=== PATIENT | female | born 1985 | race Caucasian/White ===

== ENCOUNTER 2024-12-23 18:46 | Emergency (ER) | payer OTHER ==
[2024-12-23 19:12] VITALS: TEMP 97.6
--- NOTE | 2024-12-23 19:24 | ERPHSYRPT ---
- History of Present Illness Time Seen by Provider: 12/23/24 19:10 Source: patient Patient Subjective Stated Complaint: pt here for pressure to head,throat,neck and chest off and on for weeks now, [facility] and has followed up with family doc. she was not started on any meds. she is to get a heart monitor in 2 days Triage Nursing Assessment: pt alert, and oriented walked in gait steasy resp easy, skin w/d/p. no drooling, no cough, moves all ext well, Physician History: 39-year-old female presents with ongoing symptoms of discomfort in she reports that she has been worked up by outside ER her digital printer and her primary care doc and they do not know the cause of the symptoms. She reports the symptoms typically occur upon eating and swallowing. She states if she drinks fluids or eat grapes she might immediately have the symptoms. She denies any exertional symptoms. She reports a vague pressure in her throat anterior neck and chest. She states sometimes her entire head will feel tingly. She does not have a headache. She does not describe any stroke symptoms of speech changes focal numbness weakness balance issues or visual changes. She reports that her doctor is setting her up for an outpatient cardiac workup. She states that she has already had workup by providers without a cause. She presents today wanting evaluation for ongoing symptoms. She denies abdominal pain. No fever or chills. No cough Allergies/Adverse Reactions: katha gal allergy Allergy (Uncoded 12/23/24 19:00) Home Medications: No Reportable Medications [No Reported Medications] 01/13/21 [History] Hx Tetanus, Diphtheria Vaccination/Date Given: No Hx Influenza Vaccination/Date Given: No Hx Pneumococcal Vaccination/Date Given: No Immunizations Up to Date: Yes Travel Risk - International Travel Have you traveled outside of the country in past 3 weeks: No - Emerging Infectious Disease Are you exhibiting symptoms associated with any current EIDs: No - Review of Systems Constitutional: No Fever, No Chills Eyes: No Symptoms Ears, Nose, & Throat: No Symptoms Respiratory: No Cough, No Dyspnea Cardiac: Chest Pain, No Edema, No Syncope Abdominal/Gastrointestinal: No Abdominal Pain, No Nausea, No Vomiting, No Diarrhea Genitourinary Symptoms: No Dysuria Musculoskeletal: No Back Pain, No Neck Pain Skin: No Rash Neurological: No Dizziness, No Focal Weakness, No Gait Changes, No Headache, No Lethargy, No Parasthesia, No Seizure, No Sensory Changes Psychological: No Symptoms Endocrine: No Symptoms All Other Systems: Reviewed and Negative - Past Medical History Pertinent Past Medical History: No Neurological History: Other Cardiac History: No Pertinent History Respiratory History: No Pertinent History Endocrine Medical History: No Pertinent History Musculoskeletal History: Other Female Reproductive Disorders: Other Other Medical History: LYME DZ; THYROID NODULES, ENLARGED. PT. REPORTS SHE HAD ELEVATED "RA" MARKER; CELIAC DZ, ALPHA GOUT ALLERGY - Past Surgical History Past Surgical History: Yes Other Surgical History: thyroid bx Significant Family History: no pertinent family hx - Female History Hx Last Menstrual Period: now Hx Now: No - Social History Smoking Status: Never smoker Exposure to second hand smoke: No Drug Use: none - Social Determinants of Health Will the patient participate in the screening: Yes Do you worry about a steady place to live?: Yes Do you have any problems with any of the following?: No known problems In the past 12 months,have you had to go without utilities?: No Transportation Issues: No Has anyone in your support network made you feel unsafe?: No Have you or anyone in your house had to go w/o enough food: No - Nursing Vital Signs Nursing Vital Signs: Initial Vital Signs Respiratory Rate 16 12/23/24 19:00 Blood Pressure 164/99 12/23/24 19:00 O2 Sat by Pulse Oximetry 97 12/23/24 19:00 Pain Scale Pain Intensity 3 - Physical Exam General Appearance: no apparent distress, alert Eye Exam: PERRL/EOMI, eyes nml inspection Ears, Nose, Throat Exam: normal ENT inspection, TMs normal, pharynx normal, moist mucous membranes Neck Exam: normal inspection, non-tender, supple, full range of motion Respiratory Exam: normal breath sounds, lungs clear, No respiratory distress Cardiovascular Exam: regular rate/rhythm, normal heart sounds, normal peripheral pulses Gastrointestinal/Abdomen Exam: soft, normal bowel sounds, No tenderness, No mass Back Exam: normal inspection, normal range of motion, No CVA tenderness, No vertebral tenderness Extremity Exam: normal inspection, normal range of motion, pelvis stable Neurologic Exam: alert, oriented x 3, cooperative, normal mood/affect, nml cerebellar function, nml station & gait, sensation nml, No motor deficits Skin Exam: normal color, warm, dry, No rash Lymphatic Exam: No adenopathy SpO2 Interpretation: normal SpO2: 97 Ordered Tests: Active Orders 24 hr Category Date Time Status EKG-ER Only STAT Care 12/23/24 19:23 Active CHEST 1 VIEW (PORTABLE) Stat Exams 12/23/24 19:22 Completed CBC W DIFF Stat Lab 12/23/24 19:50 Completed CMP Stat Lab 12/23/24 19:50 Completed TROPONIN Q4H Lab 12/23/24 19:50 Completed TROPONIN Q4H Lab 12/23/24 23:30 Ordered TROPONIN Q4H Lab 12/24/24 03:30 Ordered Lab/Rad Data: Laboratory Result Diagrams 12/23/24 19:50 12/23/24 19:50 Laboratory Results 12/23/24 12/23/24 12/23/24 Range/Units 19:50 19:50 19:50 WBC 5.3 (3.98-10.04) x10^3/uL RBC 4.87 (3.93-5.22) x10^6/uL Hgb 12.9 (11.2-15.7) g/dL Hct 40.0 (34.1-44.9) % MCV 82.1 (79.4-94.8) fL MCH 26.5 (25.6-32.2) pg MCHC 32.3 (32.2-35.5) g/dL RDW 13.7 (11.7-14.4) % Plt Count 192 (182-369) x10^3/uL MPV 11.5 (9.4-12.3) fL Gran % 61.8 (34.0-71.1) % Immature Gran % (Auto) 0.2 (0.001-0.429) % Nucleat RBC Rel Count 0.0 (0.00-0.2) % Eos # (Auto) 0.07 (0.04-0.36) x10^3/uL Immature Gran # (Auto) 0.01 (0.001-0.031) x10^3u/L Absolute Lymphs (auto) 1.53 (1.18-3.74) x10^3/uL Absolute Monos (auto) 0.37 (0.24-0.86) x10^3/uL Absolute Nucleated RBC 0.00 (0.00-0.012) x10^3u/L Lymphocytes % 28.9 (19.3-51.7) % Monocytes % 7.0 (4.7-12.5) % Eosinophils % 1.3 (0.7-5.8) % Basophils % 0.8 (0.1-1.2) % Absolute Granulocytes 3.28 (1.56-6.13) x10^3/uL Basophils # 0.04 (0.01-0.08) x10^3/uL Sodium 136 (135-145) mmol/L Potassium 3.5 (3.5-5.1) mmol/L Chloride 101 (98-107) mmol/L Carbon Dioxide 27 (22-30) mmol/L Anion Gap 11.1 (5-15) MEQ/L BUN 8 (7-17) mg/dL Creatinine 0.83 (0.52-1.04) mg/dL Estimated GFR 91.3 ML/MIN Glucose 88 (74-106) mg/dL Calcium 9.1 (8.4-10.2) mg/dL Total Bilirubin 0.50 (0.2-1.3) mg/dL AST 30 (14-36) U/L ALT 35 (0-35) U/L Alkaline Phosphatase 63 (38-126) U/L Troponin I < 0.012 (0.000-0.033) ng/mL Serum Total Protein 7.2 (6.3-8.2) g/dL Albumin 4.3 (3.5-5.0) g/dL - Progress Progress: unchanged, improved Progress Note: 12/23/24 19:27 Sense with several moments and ongoing symptoms she reports worse with swallowing. She states that she will get an uneasiness or burning sensation sometimes a pressure in her neck and chest that occurs mostly with swallowing. She reports symptoms immediately after drinking fluids or eating grapes she will have a soreness in her throat and into her chest. Denies any other active symptoms. Denies chest pain. No difficulty swallowing. She has had prior workups including seeing a digital printer outside ER workup and saw her PCP without a cause. Get cardiac evaluation EKG chest x-ray and baseline labs. 12/23/24 20:04 cxr no acute abn seen 12/23/24 20:51 Workup was unremarkable. Patient's had symptoms for several months. I do not see any etiology. The symptoms seem to be worse is associated with swallowing possible esophagitis so we will place on a PPI. I discussed the importance of her follow-up with her primary care. Return instructions - Departure Departure Disposition: Home Clinical Impression: Chest pressure Condition: Good Critical Care Time: No Referrals: RADHA REYNOLDS MD [Primary Care Provider, [facility]] - Follow up/PCP as directed Additional Instructions: Started on medication for possible esophageal inflammation. Please keep follow- up with your provider. Your workup in the ER is negative and you may need further outpatient workup and return for worsening symptoms or concerns Prescriptions: PANTOPRAZOLE 40 mg Tablet [Protonix 40MG Tablet] 40 mg PO DAILY 30 Days #30 tab
[2024-12-23 19:53] LABS: BASOPHIL % 0.8 % (0.1-1.2); Basophil (Absolute #) 0.04 x10^3/uL (0.01-0.08); Eosinophil (Absolute #) 0.07 x10^3/uL (0.04-0.36); Hematocrit 40.0 % (34.1-44.9); Hemoglobin 12.9 g/dL (11.2-15.7); IMMATURE GRAN # 0.01 x10^3u/L (0.001-0.031); IMMATURE GRAN % 0.2 % (0.001-0.429); Lymphocyte (Absolute #) 1.53 x10^3/uL (1.18-3.74); Mean Corpuscular Hemoglobin 26.5 pg (25.6-32.2); Mean Corpuscular Hgb Concent. 32.3 g/dL (32.2-35.5); Monocyte (Absolute #) 0.37 x10^3/uL (0.24-0.86); NUCLEATED RBC # 0.00 x10^3u/L (0.00-0.012); NUCLEATED RBC % 0.0 % (0.00-0.2); Platelet Count 192 x10^3/uL (182-369); Red Blood Count 4.87 x10^6/uL (3.93-5.22); White Blood Count 5.3 x10^3/uL (3.98-10.04)
[2024-12-23 20:12] LABS: Calcium 9.1 mg/dL (8.4-10.2); Carbon Dioxide 27.0 mmol/L (22-30); Creatinine 1 0.83 mg/dL (0.52-1.04); EST GLOMERULAR FILTRATION RATE 91.3 ML/MIN; Glucose 88.0 mg/dL (74-106); Potassium 3.5 mmol/L (3.5-5.1); SGOT/AST 30.0 U/L (14-36); SGPT/ALT 35.0 U/L (0-35); Total Protein 7.2 g/dL (6.3-8.2)
--- NOTE | 2024-12-23 20:40 | XRAY ---
Indication: Chest pain. Comparison: None Portable chest demonstrates normal heart, lungs, and bony thorax.
[2024-12-23 20:54] VITALS: O2SAT 97
[2024-12-23 21:04] VITALS: BP 126/92; PULSE 76; RESP 13
== END 2024-12-23 21:20 | disposition home or self-care (01) ==
LOC: ED 18:46
DX: R07.9 Chest pain, unspecified (principal); Z59.819 Housing instability, housed unspecified